=== PATIENT | male | born 1970 | race Caucasian/White ===

== ENCOUNTER 2017-01-11 14:57 | Emergency (ER) | payer OTHER ==
[~2017-01-11] VITALS: Ht 182.9 cm; Wt 87.2 kg
[2017-01-11] MEDS ORDERED: PERCOCET 5/31 TABLET PO (16:23)
[2017-01-11 17:02] VITALS: BP 128/96
== END 2017-01-11 17:04 | disposition home or self-care (01) ==
LOC: EME 14:57
DX: S67.41XA Crushing injury of right wrist and hand, initial encounter (principal); S52.301A Unspecified fracture of shaft of right radius, initial encounter for closed fracture; S61.511A Laceration without foreign body of right wrist, initial encounter; W23.0XXA Caught, crushed, jammed, or pinched between moving objects, initial encounter; Y92.69 Other specified industrial and construction area as the place of occurrence of the external cause; Y99.0 Civilian activity done for income or pay; F17.200 Nicotine dependence, unspecified, uncomplicated; Z23 Encounter for immunization
CPT/HCPCS: 73090; 99281; 99285; J1170; J2405; J7030; J7050